=== PATIENT | male | born 1950 | race Caucasian/White ===

== ENCOUNTER 2025-02-05 10:56 | Emergency (ER) | payer MEDICARE, SELFPAY ==
[2025-02-05 10:59] VITALS: BP 144/88
[2025-02-05 11:35] LABS: Hematocrit 46.3 % (39.0-52.0); Hemoglobin 15.6 g/dL (13.0-18.0); Mean Corp Hgb Conc. 33.7 g/dL (33.0-37.0); Mean Corpuscular Volume 91.3 fL (80.0-94.0); Nucleated Red Blood Cells % 0 % (-); Platelet Count 170 10^3/uL (130-400); Red Cell Dist. Width 12.5 % (11.5-14.5)
[2025-02-05 11:48] LABS: ALT (SGPT) 22 U/L (0-50); AST (SGOT) 30 U/L (17-59); Albumin 4.1 g/dl (3.5-5.0); Alkaline Phosphatase 75 U/L (38-126); Blood Urea Nitrogen 14 mg/dl (9-20); Calcium 9.3 mg/dl (8.4-10.2); Carbon Dioxide 26 mmol/L (22-30); Chloride 107 mmol/L (98-107); Glucose 103 mg/dl (70-99); Potassium 4.6 mmol/L (3.5-5.1); Sodium 138 mmol/L (135-145); Total Protein 6.8 g/dl (6.3-8.2); eGFR > 60.00
[2025-02-05 11:59] LABS: Troponin I < 0.012 ng/ml
[2025-02-05 12:41] VITALS: BMI 32.3
[2025-02-05 13:00] VITALS: BP 109/70
[2025-02-05 14:00] VITALS: BP 125/74
[2025-02-05 15:00] VITALS: BP 124/74
[2025-02-05 15:40] VITALS: BP 139/71
--- NOTE | 2025-02-05 15:43 | ED.GENMED ---
History of Present Illness
General
Chief Complaint: Chest Pain
Time Seen by Provider: 02/05/25 12:25
History of Present Illness
History of Present Illness:
74-year-old male presents to the emergency department for evaluation of left-sided pleuritic chest pain that began yesterday. Pain apparently maximize last night and he had a hard time sleeping. He denies shortness of breath with exertion or leg
swelling. 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
to rule out a pulmonary embolism. He is on Plavix and aspirin currently
Review of Systems
Review of Systems
Allergies reviewed?: Yes
All Other Systems: ROS reviewed and negative except as documented in HPI and ROS
Phy Exam
Physical Exam
Physical Exam:
GEN: Well appearing, NAD, WDWN
HEENT: Oral mucosa moist, no scleral icterus
Cardiac: Regular rate and rhythm, no murmur
Lung: No respiratory distress, no tachypnea, lungs clear to auscultation bilaterally
MSK: No gross deformity or injuries
Skin: Good color, no pallor or jaundice, no rashes
Neuro: AO x3, moves all extremities freely
Psych: Calm, cooperative
Scores
Heart Score for Chest Pain Patients
STEMI patient?: Not applicable
Course
Orders/Labs/Results
Orders:
Orders
02/05/25 11:06
Electrocardiogram (*1) Urgent
Reason for Study: Chest Pain
EKG- Treatment ONCE
02/05/25 11:17
Complete Blood Count/With Diff Urgent
Comprehensive Metabolic Panel Urgent
Troponin I Urgent
02/05/25 13:08
CT Chest PE Study Urgent
Comment:
Reason For Exam: pleuritic L chest pain, recent + DVT study
Abnormal Lab Results
02/05/25
11:17
Absolute Monos (auto) 0.7 H 10^3/uL
(0.1-0.6)
Lymphocytes % 20.2 L %
(20.5-51.1)
Monocytes % 10.5 H %
(1.7-9.3)
Glucose 103 H mg/dl
(70-99)
Total Bilirubin 1.4 H mg/dl
(0.2-1.3)
02/05/25 11:17
02/05/25 11:17
Vital Signs
Initial and Last Documented VS:
Initial Vital Signs
Temp Pulse Resp BP Pulse Ox
98.3 F 86 16 144/88 98
02/05/25 10:59 02/05/25 10:59 02/05/25 10:59 02/05/25 10:59 02/05/25 10:59
Last Documented Vital Signs
Temp Pulse Resp BP Pulse Ox
98.3 F 62 13 139/71 96
02/05/25 10:59 02/05/25 15:45 02/05/25 15:45 02/05/25 15:40 02/05/25 15:45
MDM/Problems Addressed
MDM/Problems Addressed:
PE study is unremarkable, minimal hilar adenopathy and pulmonary fibrosis not likely contributory to his pain. Discharged in stable condition and recommend primary care follow-up
Comment
Comment:
EKG independently interpreted by me shows normal sinus rhythm at a rate of [address] changes concerning for ischemia
*Pulse Oximetry
SaO2: 94
Oxygen Mode of Delivery: Room air
Patient hypoxic: not evaluated
*Critical Care Note
Total Time (30-74mins, 75-104mins- exclusive of procedures): Not Applicable
ED Attending Note
-
Portions of this chart may have been created with voice recognition software.� Occasional wrong word or��sound alike� substitutions may have occurred due to the inherent limitations of voice recognition software.
Discharge Plan
Departure
Patient Disposition: Home (Routine Discharge)
Date of Disposition: 02/05/25
Time of Disposition: 15:44
Patient with high blood pressure during this ER visit?: No
Discharge Problem:
Chest pain, pleuritic
Instructions: Chest Pain That Is Not Caused by the Heart (DC)
Referrals:
Chiara Cho MD [Family Provider, Internal Medicine]
Activity Restrictions/Additional Instructions:
I will contact you if your CT scan shows any abnormalities
Interventions
Interventions:
*Risk Screen - Suicide Last Done: 02/05/25 10:59
*General Assessment Last Done: 02/05/25 12:42
*Neglect/Abuse Screening Last Done: 02/05/25 10:59
*ED- Fall Risk Assessment Last Done: 02/05/25 12:42
*ED COVID-19 Vaccine History Last Done: 02/05/25 12:42
*Nursing Disposition Last Done: 02/05/25 15:53
ED- Cardiac Assessment Last Done: 02/05/25 12:43
Discharge Date and Time
Discharge Date/Time: 02/05/25 15:53
Print Language: GEORGIAN
== END 2025-02-05 15:53 | disposition home or self-care (01) ==
LOC: EMR 10:56
PROVIDERS: Student in an Organized Health Care Education/Training Program; EMERGENCY PHYSICIAN Emergency Medicine; FAMILY PHYSICIAN Internal Medicine
DX: R07.81 Pleurodynia (principal); Z86.718 Personal history of other venous thrombosis and embolism; Z79.02 Long term (current) use of antithrombotics/antiplatelets; Z79.82 Long term (current) use of aspirin
CPT/HCPCS: 99284; 71275; 80053; 84484; 85025; 93005; Q9967